=== PATIENT | female | born 1965 | race Caucasian/White ===

== ENCOUNTER 2017-08-03 19:14 | Inpatient (IN) | payer OTHER ==
[~2017-08-03] VITALS: Ht 170.2 cm; Wt 78.2 kg
[~2017-08-03 19:14] MED LIST: AMBIEN10 MG PO; Ambien PO; BENADRYL ALLERG25 MG PO; CELEXA20 MG PO; COLACE100 MG PO; DALMANE15 MG PO; DURAGESIC100 MCG TD; Duragesic TD; ESTRADIOL0.5 MG PO; FENTANYL1 EAC3 TD; FLEXERIL10 MG PO; MELATONIN5 M4 PO; MIRTAZAPINE15 MG PO; NORCO 5-325 TA1 EACH PO; PERCOCET 7.51 TABLET PO; POLYETHYLENE GL17 GM PO; PROTONIX40 MG PO; REMERON15 M2 PO; Remeron PO; SEROQUEL50 MG PO; SEROquel PO; VIIBRYD40 MG PO; Vicodin,Norco 5/325 PO; ZOFRAN4 MG PO; celeXA PO
[2017-08-03 19:48] LABS: HEMATOCRIT 47.6 % (36.0-46.0); MCH 28.3 PG (29.0-34.0); MCHC 33.6 G/DL (30.0-36.0); MCV 84.2 FL (83-99); MEAN PLAT.VOLUME 10.2 uM^3 (9.5-12.4); PLATELET COUNT 272 K/uL (156-360); RBC DIS.WIDTH-CV 13.4 % (11.8-14.6); RBC DIS.WIDTH-SD 41.3 % (39-53); RED BLOOD COUNT 5.65 M/uL (3.80-5.20); WHITE BLOOD COUNT 11.6 K/uL (4.1-10.2)
[2017-08-03 19:56] LABS: CHLORIDE 96 mEq/L (99-109); POTASSIUM 4.1 mEq/L (3.7-5.4); SODIUM 136 mEq/L (136-147)
[2017-08-03 19:58] LABS: GLUCOSE 165 mg/dL (70-99)
[2017-08-03 20:00] LABS: ANION GAP 13 MEQ/L (2-14)
[2017-08-03 20:01] LABS: ALKALINE PHOSPHATASE 130 IU/L (3-129)
[2017-08-03 20:02] LABS: GFR ESTIMATE (CALCULATED) 46 mL/min/
[2017-08-03 20:03] LABS: UREA NITROGEN (BUN) 12 mg/dL (9-23)
[2017-08-03 20:12] LABS: QUANTITATIVE HCG < 4.0 MIU/ML
[2017-08-03 20:38] LABS: LIPASE 2212 U/L (1.0-51.0)
[2017-08-03] MEDS ORDERED: BAL B-1001 EACH PO (23:44)
[2017-08-03] MEDS ORDERED: BUPROPION HCL100 M1 PO (23:46)
[2017-08-03] MEDS ORDERED: BRINTELLIX10 MG PO (23:47)
[2017-08-03] MEDS ORDERED: TRIAZOLAM0.25 MG PO (23:47)
[2017-08-03] MEDS ORDERED: EXCEDRIN MIGRA1 EAC3 PO (23:53)
[2017-08-04 01:24] VITALS: BP 115/70
[2017-08-04 06:30] LABS: LIPASE 1428 U/L (1.0-51.0)
[2017-08-04 06:57] VITALS: BP 125/76
[2017-08-04 08:25] LABS: ALKALINE PHOSPHATASE 103 IU/L (3-129); ANION GAP 12 MEQ/L (2-14); CHLORIDE 100 MEQ/L (99-109); GFR ESTIMATE (CALCULATED) > 59 mL/min/; GLUCOSE 86 mg/dL (70-99); POTASSIUM 4.2 MEQ/L (3.7-5.4); SODIUM 138 MEQ/L (136-147); TOTAL BILIRUBIN 0.8 MG/DL (0.0-1.0); UREA NITROGEN (BUN) 12 mg/dL (9-23)
[2017-08-04 08:42] LABS: EOSINOPHIL (%) 0.2 % (0-5); IMMATURE GRANULOCYTE (%) 0.6 % (0.0-0.7); IMMATURE GRANULOCYTE COUNT 0.1 K/uL; INSTRUMENT ABS NEUTROPHIL CT 10.4 K/uL; LYMPHOCYTE COUNT 0.6 K/uL (1.0-2.8); MONOCYTE (%) 3.6 % (3-12); MONOCYTE COUNT 0.4 K/uL (0-0.8); NEUTROPHIL COUNT 10.4 K/uL (1.8-6.4)
[2017-08-04 12:02] LABS: HBSG INDEX 0.17; HPCA INDEX 0.15
[2017-08-04 12:03] LABS: AHBS INDEX 0.26; HEPATITIS B SURFACE ANTIBODY Nonreactive
[2017-08-04 16:18] VITALS: BP 96/54
[2017-08-04 19:10] VITALS: BP 111/62
[2017-08-04 23:01] VITALS: BP 116/56
[2017-08-05 07:25] VITALS: BP 126/62
[2017-08-05 07:26] LABS: EOSINOPHIL (%) 2.3 % (0-5); EOSINOPHIL COUNT 0.2 K/uL (0-0.3); IMMATURE GRANULOCYTE (%) 0.4 % (0.0-0.7); INSTRUMENT ABS NEUTROPHIL CT 5.5 K/uL; LYMPHOCYTE COUNT 1.3 K/uL (1.0-2.8); MCH 27.5 PG (29.0-34.0); MCHC 32.1 G/DL (30.0-36.0); MCV 85.6 FL (83-99); MONOCYTE (%) 6.3 % (3-12); MONOCYTE COUNT 0.5 K/uL (0-0.8); NEUTROPHIL (%) 73.3 % (45-76); NEUTROPHIL COUNT 5.5 K/uL (1.8-6.4); RBC DIS.WIDTH-CV 13.4 % (11.8-14.6); RBC DIS.WIDTH-SD 42.1 % (39-53); WHITE BLOOD COUNT 7.5 K/uL (4.1-10.2)
[2017-08-05 07:36] LABS: ANION GAP 7 MEQ/L (2-14); CHLORIDE 102 MEQ/L (99-109); POTASSIUM 3.9 MEQ/L (3.7-5.4); SAMPLE HEMOLYSIS CHECK 0; SAMPLE ICTERIC CHECK 0; SAMPLE LIPEMIA CHECK 0; SODIUM 135 MEQ/L (136-147); TOTAL BILIRUBIN 0.8 MG/DL (0.0-1.0)
[2017-08-05 07:46] LABS: MEAN PLAT.VOLUME 10.5 uM^3 (9.5-12.4); PLAT.SUFFICIENCY ADEQUATE
[2017-08-05 07:52] LABS: RED BLOOD COUNT 4.44 M/uL (3.80-5.20)
[2017-08-05 07:53] LABS: PLATELET COUNT 156 K/uL (156-360)
[2017-08-05 07:55] LABS: ALKALINE PHOSPHATASE 85 IU/L (3-129); GFR ESTIMATE (CALCULATED) > 59 mL/min/; GLUCOSE 106 mg/dL (70-99); LIPASE 261 U/L (1.0-51.0); UREA NITROGEN (BUN) 7 mg/dL (9-23)
[2017-08-05 09:04] LABS: ADD MIUA? YES; BILIRUBIN NEGATIVE; BLOOD SMALL; COLOR YELLOW ((YELLOW)); GLUCOSE (STRIP) NEGATIVE; KETONES NEGATIVE; LEUKOCYTES SMALL; NITRITE NEGATIVE; PROTEIN (STRIP) NEGATIVE; SPECIFIC GRAVITY 1.005 (1.000-1.030); UROBILINOGEN 0.2 MG/DL (0.2-1.0)
[2017-08-05 09:40] LABS: BACTERIA 1+ /HPF; EPITHELIAL CELLS RARE /HPF; MUCUS NONE SEEN /LPF; RED BLOOD CELLS 0-5 /HPF (0-5); UCUL ADDED? YES; WHITE BLOOD CELLS TNTC /HPF (0-5)
[2017-08-05 15:20] VITALS: BP 126/61
[2017-08-05 21:52] LABS: POINT-OF-CARE METER ID UU14208750
[2017-08-05 23:10] VITALS: BP 113/64
[2017-08-06 06:16] LABS: POINT-OF-CARE METER ID UU14208750
[2017-08-06 07:09] LABS: EOSINOPHIL (%) 2.6 % (0-5); EOSINOPHIL COUNT 0.2 K/uL (0-0.3); HEMATOCRIT 37.8 % (36.0-46.0); IMMATURE GRANULOCYTE (%) 0.5 % (0.0-0.7); INSTRUMENT ABS NEUTROPHIL CT 6.3 K/uL; LYMPHOCYTE COUNT 1.6 K/uL (1.0-2.8); MCH 28.5 PG (29.0-34.0); MCHC 33.1 G/DL (30.0-36.0); MCV 86.1 FL (83-99); MEAN PLAT.VOLUME 10.4 uM^3 (9.5-12.4); MONOCYTE (%) 4.9 % (3-12); MONOCYTE COUNT 0.4 K/uL (0-0.8); NEUTROPHIL (%) 73.6 % (45-76); NEUTROPHIL COUNT 6.3 K/uL (1.8-6.4); PLATELET COUNT 165 K/uL (156-360); RBC DIS.WIDTH-CV 13.4 % (11.8-14.6); RBC DIS.WIDTH-SD 42.4 % (39-53); RED BLOOD COUNT 4.39 M/uL (3.80-5.20); WHITE BLOOD COUNT 8.5 K/uL (4.1-10.2)
[2017-08-06 07:30] VITALS: BP 121/59
[2017-08-06 07:55] LABS: ALKALINE PHOSPHATASE 88 IU/L (3-129); ANION GAP 9 MEQ/L (2-14); CHLORIDE 101 MEQ/L (99-109); GFR ESTIMATE (CALCULATED) > 59 mL/min/; GLUCOSE 115 mg/dL (70-99); LIPASE 74 U/L (1.0-51.0); POTASSIUM 3.3 MEQ/L (3.7-5.4); SAMPLE HEMOLYSIS CHECK 0; SAMPLE ICTERIC CHECK 0; SAMPLE LIPEMIA CHECK 0; SODIUM 138 MEQ/L (136-147); TOTAL BILIRUBIN 0.7 MG/DL (0.0-1.0); UREA NITROGEN (BUN) 6 mg/dL (9-23)
[2017-08-06 15:10] VITALS: BP 117/58
[2017-08-06 23:01] VITALS: BP 112/59
[2017-08-07 07:48] VITALS: BP 112/59
[2017-08-07 08:07] LABS: ANION GAP 8 MEQ/L (2-14); CHLORIDE 106 MEQ/L (99-109); GFR ESTIMATE (CALCULATED) > 59 mL/min/; GLUCOSE 108 mg/dL (70-99); POTASSIUM 3.6 MEQ/L (3.7-5.4); SAMPLE HEMOLYSIS CHECK 0; SAMPLE ICTERIC CHECK 0; SAMPLE LIPEMIA CHECK 0; SODIUM 139 MEQ/L (136-147); UREA NITROGEN (BUN) 5 mg/dL (9-23)
[2017-08-07 15:55] VITALS: BP 100/58
[2017-08-07 23:57] VITALS: BP 144/74
[2017-08-08 06:22] LABS: EOSINOPHIL (%) 4.5 % (0-5); EOSINOPHIL COUNT 0.2 K/uL (0-0.3); HEMATOCRIT 34.4 % (36.0-46.0); IMMATURE GRANULOCYTE (%) 0.5 % (0.0-0.7); INSTRUMENT ABS NEUTROPHIL CT 2.8 K/uL; LYMPHOCYTE COUNT 1.1 K/uL (1.0-2.8); MCH 27.9 PG (29.0-34.0); MCHC 32.6 G/DL (30.0-36.0); MCV 85.6 FL (83-99); MEAN PLAT.VOLUME 10.5 uM^3 (9.5-12.4); MONOCYTE COUNT 0.3 K/uL (0-0.8); NEUTROPHIL COUNT 2.8 K/uL (1.8-6.4); PLATELET COUNT 166 K/uL (156-360); RBC DIS.WIDTH-CV 13.2 % (11.8-14.6); RBC DIS.WIDTH-SD 41.5 % (39-53); RED BLOOD COUNT 4.02 M/uL (3.80-5.20); WHITE BLOOD COUNT 4.4 K/uL (4.1-10.2)
[2017-08-08 07:26] VITALS: BP 116/70
[2017-08-08] MEDS ORDERED: PROTONIX40 MG PO (10:58)
[2017-08-08] MEDS ORDERED: CIPRO250 MG PO (10:58)
== END 2017-08-08 13:00 | disposition home or self-care (01) | DRG 439 ==
LOC: EME 19:14 → EDOF 22:55 → 2EAST 22:55 → ENRESERV 22:56 → EDOF 08-04 00:47 → 2EAST 08-04 01:02
PROVIDERS: Family Medicine; Internal Medicine Gastroenterology
DX: K85.90 Acute pancreatitis without necrosis or infection, unspecified (principal); N39.0 Urinary tract infection, site not specified; E87.6 Hypokalemia; K76.0 Fatty (change of) liver, not elsewhere classified; F31.30 Bipolar disorder, current episode depressed, mild or moderate severity, unspecified; F41.9 Anxiety disorder, unspecified; G89.29 Other chronic pain; M54.9 Dorsalgia, unspecified; K59.00 Constipation, unspecified; Z86.73 Personal history of transient ischemic attack (TIA), and cerebral infarction without residual deficits; Z87.891 Personal history of nicotine dependence; Z79.891 Long term (current) use of opiate analgesic
CPT/HCPCS: 74181; 80048; 80053; 81003; 82948; 83690; 83880; 84702; 85025; 85027; 86706; 86803; 87077; 87086; 87186; 87340; 93005; 99281; 99285; C9113; J0696; J1170; J1650; J2270; J2405; J7030; J7050